=== PATIENT | male | born 1980 | race Caucasian/White ===

== ENCOUNTER 2018-11-08 14:10 | Emergency (ER) | payer SELFPAY ==
[~2018-11-08] VITALS: Ht 188 cm; Wt 63.7 kg
[2018-11-08] MEDS ORDERED: ZYRTEC10 M5 PO (14:31)
[2018-11-08 14:42] VITALS: BP 111/70
== END 2018-11-08 14:42 | disposition home or self-care (01) | DRG 153 ==
LOC: ED 14:10
DX: J30.9 Allergic rhinitis, unspecified (principal)

== ENCOUNTER 2019-03-08 09:04 | Emergency (ER) | payer SELFPAY ==
[~2019-03-08] VITALS: Ht 188 cm; Wt 70.0 kg
[~2019-03-08 09:04] MED LIST: ZYRTEC10 M5 PO
[2019-03-08] MEDS ORDERED: CEPHALEXIN500 M1 PO (10:00)
[2019-03-08] MEDS ORDERED: BACTRIM DS1 TAB PO (10:00)
[2019-03-08 10:19] VITALS: BP 121/76
== END 2019-03-08 10:19 | disposition home or self-care (01) | DRG 605 ==
LOC: ED 09:04
DX: S91.331A Puncture wound without foreign body, right foot, initial encounter (principal); W45.0XXA Nail entering through skin, initial encounter; Y92.007 Garden or yard of unspecified non-institutional (private) residence as the place of occurrence of the external cause

== ENCOUNTER 2020-11-03 | Emergency (ER) | payer SELFPAY ==
[~2020-11-03] MED LIST changes: +BACTRIM DS1 TAB PO; +CEPHALEXIN500 M1 PO
[2020-11-03] MEDS ORDERED: BACTRIM DS1 TAB PO (03:35)
== END 2020-11-03 03:52 | disposition home or self-care (01) | DRG 607 ==
DX: L73.8 Other specified follicular disorders (principal); N49.2 Inflammatory disorders of scrotum

== ENCOUNTER 2021-05-06 11:41 | Emergency (ER) | payer SELFPAY ==
[~2021-05-06] VITALS: Ht 188 cm; Wt 70.0 kg
[2021-05-06 12:38] VITALS: BP 133/78
== END 2021-05-06 12:38 | disposition home or self-care (01) | DRG 392 ==
LOC: ED 11:41
DX: K59.00 Constipation, unspecified (principal)